=== PATIENT | female | born 2000 | race Caucasian/White ===

== ENCOUNTER 2021-03-18 00:30 | Emergency (ER) | payer MEDICAID ==
[2021-03-18] MEDS ORDERED: traMADol HCl 50 MG TAB ONE (01:20)
== END 2021-03-18 01:47 | disposition home or self-care (01) ==
LOC: NAV ERS 00:30
DX: S93.602A Unspecified sprain of left foot, initial encounter (principal); F17.290 Nicotine dependence, other tobacco product, uncomplicated; X58.XXXA Exposure to other specified factors, initial encounter

== ENCOUNTER 2021-05-05 16:21 | Emergency (ER) | payer OTHER ==
[2021-05-05 17:00] LABS: Clarity Clear (Clear); Specific Gravity, Urine 1.024 (1.002-1.036)
[2021-05-05 17:03] LABS: Bacteria/HPF Rare-Few HPF (None Seen); Pregnancy Test - Urine (BHCG) Negative (Negative); Squamous Epithelial 0-3 HPF (0-3); WBC/HPF 0-3 HPF (0-3)
[2021-05-05 17:04] LABS: Pregu Control Background? CLEAR/WHITE (CLR/WHITE); Pregu Control Bar Appear? YES (CONTROL BAR); Specific Gravity 1.024 (1.002-1.036)
[2021-05-05] MEDS ORDERED: Cipro 250 MG TAB ONE (17:10)
== END 2021-05-05 17:15 | disposition home or self-care (01) ==
LOC: NAV ERS 16:21
DX: N39.0 Urinary tract infection, site not specified (principal); F17.290 Nicotine dependence, other tobacco product, uncomplicated
CPT/HCPCS: 81003; 81015; 81025; 87086; 99284

== ENCOUNTER 2021-05-30 16:39 | Emergency (ER) | payer OTHER, SELFPAY | END 2021-05-30 17:30 | disposition home or self-care (01) | LOC: NAV ERS 16:39 | DX: R11.0 Nausea (principal); R53.81 Other malaise; R51.9 Headache, unspecified; F17.290 Nicotine dependence, other tobacco product, uncomplicated | CPT/HCPCS: 87804; 99283 ==

== ENCOUNTER 2021-06-04 08:00 | Emergency (ER) | payer SELFPAY ==
[2021-06-04 08:50] LABS: #Basophils 0.1 thou/uL (0.0-0.2); #Eosinphils 0.2 thou/uL (0.0-0.7); #Lymphocytes 2.3 thou/uL (1.20-3.40); #Monocytes 0.7 thou/uL (0.11-0.59); #Neutrophils 6.5 thou/uL (1.40-6.50); %Basophils 0.9 % (0.0-1.0); %Eosinophils 2.3 % (0.0-10.0); %Lymphocytes 23.4 % (21.0-51.0); %Monocytes 7.5 % (0.0-10.0); %Neutrophils 65.9 % (42.0-75.0); Hemoglobin 12.1 g/dL (12.0-16.0); Mean Corpuscular HGB CONC 31.2 g/dL (32.0-36.0); Mean Corpuscular Hemoglobin 26.2 pg (27.0-31.0); Mean Corpuscular Volume 83.9 fL (78.0-98.0); Mean Platelet Volume 8.6 fL (7.4-10.4); Platelet Count 458 thou/uL (130-400); RBC Distribution Width 13.6 % (11.5-14.5); Red Blood Cell (RBC) Count 4.64 mill/uL (4.20-5.40); White Blood Cell (WBC) Count 9.8 thou/uL (4.8-10.8)
[2021-06-04 09:03] LABS: ALT (SGPT) 20 U/L (8-55); AST (SGOT) 13 U/L (5-34); Albumin 3.6 g/dL (3.5-5.0); Anion Gap 11 mmol/L (10-20); BUN (Urea Nitrogen) 7 mg/dL (7.0-18.7); Bilirubin, Total 0.2 mg/dL (0.2-1.2); Calc. Creatinine Clearance 0 mL/min (70-130); Calcium 8.9 mg/dL (7.8-10.44); Carbon Dioxide 25 mmol/L (22-29); Chloride 107 mmol/L (98-107); Globulin 2.9 g/dL (2.4-3.5); Glucose 98 mg/dL (70-105); Potassium 4.5 mmol/L (3.5-5.1); Protein, Total 6.5 g/dL (6.0-8.3); Sodium 138 mmol/L (136-145)
[2021-06-04 09:47] LABS: Alkaline Phosphatase 104 U/L (40-110)
[2021-06-04 15:02] LABS: MONO NEGATIVE CONTROL ZONE White (Negative) (White); MONO POSITIVE CONTROL Pink Line (Positive) (PINK/RED); Mononucleosis NEGATIVE (NEGATIVE)
== END 2021-06-04 09:10 | disposition home or self-care (01) ==
LOC: NAV ERS 08:00
DX: J04.0 Acute laryngitis (principal); B34.9 Viral infection, unspecified; F17.290 Nicotine dependence, other tobacco product, uncomplicated
CPT/HCPCS: 36415; 80053; 85025; 86308; 87081; 87430; 99284

== ENCOUNTER 2021-06-05 14:52 | Emergency (ER) | payer SELFPAY | END 2021-06-05 15:35 | disposition home or self-care (01) | LOC: NAV ERS 14:52 | DX: J02.9 Acute pharyngitis, unspecified (principal); B34.9 Viral infection, unspecified; F17.290 Nicotine dependence, other tobacco product, uncomplicated | CPT/HCPCS: 99283 ==

== ENCOUNTER 2021-06-10 09:20 | Emergency (ER) | payer MEDICAID, SELFPAY ==
[2021-06-11 00:28] LABS: SARS-CoV-2 PCR by NAA Not Detected (NotDetected)
== END 2021-06-10 10:25 | disposition home or self-care (01) ==
LOC: NAV ERS 09:20
DX: B34.9 Viral infection, unspecified (principal); J06.9 Acute upper respiratory infection, unspecified; Z20.822 Contact with and (suspected) exposure to COVID-19; F17.290 Nicotine dependence, other tobacco product, uncomplicated
CPT/HCPCS: 71046; U0003; U0005

== ENCOUNTER 2021-06-20 18:10 | Emergency (ER) | payer MEDICAID, SELFPAY | END 2021-06-20 19:31 | disposition home or self-care (01) | LOC: NAV ERS 18:10 | DX: K62.5 Hemorrhage of anus and rectum (principal); F17.290 Nicotine dependence, other tobacco product, uncomplicated | CPT/HCPCS: 99281 ==

== ENCOUNTER 2022-01-15 19:20 | Emergency (ER) | payer OTHER, SELFPAY | END 2022-01-15 20:26 | disposition home or self-care (01) | LOC: NAV ERS 19:20 | DX: R42 Dizziness and giddiness (principal); R04.0 Epistaxis; F17.290 Nicotine dependence, other tobacco product, uncomplicated | CPT/HCPCS: 93005 ==

== ENCOUNTER 2022-04-08 12:38 | Emergency (ER) | payer SELFPAY | END 2022-04-08 13:51 | disposition home or self-care (01) | LOC: NAV ERS 12:38 | DX: J11.1 Influenza due to unidentified influenza virus with other respiratory manifestations (principal); F17.200 Nicotine dependence, unspecified, uncomplicated | CPT/HCPCS: 87804; 99283 ==

== ENCOUNTER 2022-08-14 18:26 | Emergency (ER) | payer SELFPAY | END 2022-08-14 19:19 | disposition home or self-care (01) | LOC: NAV ERS 18:26 | DX: M94.0 Chondrocostal junction syndrome [Tietze] (principal); F17.290 Nicotine dependence, other tobacco product, uncomplicated; X50.0XXA Overexertion from strenuous movement or load, initial encounter | CPT/HCPCS: 99283 ==

== ENCOUNTER 2022-10-03 14:05 | Outpatient (CLI) | payer BC | END 2022-10-03 14:06 | disposition home or self-care (01) | LOC: NAV RAD 14:05 | PROVIDERS: ATTEND Family Medicine | DX: M94.0 Chondrocostal junction syndrome [Tietze] (principal) ==

== ENCOUNTER 2022-11-08 10:10 | Emergency (ER) | payer BC ==
[2022-11-08] MEDS ORDERED: Ketorolac Tromethamine 60 MG/2 ML VIAL ONE (10:52)
== END 2022-11-08 11:05 | disposition home or self-care (01) ==
LOC: NAV ERS 10:10
DX: B34.9 Viral infection, unspecified (principal); G43.909 Migraine, unspecified, not intractable, without status migrainosus; F17.290 Nicotine dependence, other tobacco product, uncomplicated
CPT/HCPCS: 96372; 99283; J1885

== ENCOUNTER 2023-05-19 15:43 | Emergency (ER) | payer BC, SELFPAY ==
[2023-05-19 16:17] LABS: Bilirubin Negative (Negative); Blood, Urine Negative (Negative); Clarity Clear (Clear); Glucose, Urine (Dipstick) Negative (Negative); Ketone, Urine Negative (Negative); Leukocyte Negative (Negative); Nitrite Negative (Negative); Protein, Urine (Dipstick) Negative (Neg-Trace); Urobilinogen 0.2 mg/dL (Less than 2); pH, Urine 6.5 (5.0-9.0)
[2023-05-19 16:19] LABS: Pregnancy Test - Urine (BHCG) Negative (Negative); Pregu Control Background? CLEAR/WHITE (CLR/WHITE); Pregu Control Bar Appear? YES (CONTROL BAR)
[2023-05-19 16:25] LABS: Bacteria/HPF Rare-Few HPF (None Seen); CAUTI Indications for Culture Dysuria,urgency,freq; Squamous Epithelial 0-3 HPF (0-3); Urine Culture Reflex No No; WBC/HPF None Seen HPF (0-3)
== END 2023-05-19 17:12 | disposition home or self-care (01) ==
LOC: NAV ERS 15:43
DX: U07.1 COVID-19 (principal); F17.290 Nicotine dependence, other tobacco product, uncomplicated
CPT/HCPCS: 71045; 81001; 81025; 87635; 87804

== ENCOUNTER 2023-07-25 11:43 | Outpatient (CLI) | payer BC, MEDICAID | END 2023-07-25 11:44 | disposition home or self-care (01) | LOC: NAV RAD 11:43 | PROVIDERS: ATTEND Family Medicine | DX: M25.562 Pain in left knee (principal); M54.6 Pain in thoracic spine | CPT/HCPCS: 72072; 72100 ==

== ENCOUNTER 2023-08-29 18:44 | Emergency (ER) | payer BC, MEDICAID ==
[2023-08-29] MEDS ORDERED: Ketorolac Tromethamine 60 MG/2 ML VIAL ONE (19:11)
[2023-08-29 20:01] LABS: Influenza A by NAA DETECTED (NotDetected); Influenza B by NAA Not Detected (NotDetected); SARS-CoV-2 NAA Rapid Test Not Detected (NotDetected)
== END 2023-08-29 20:23 | disposition home or self-care (01) ==
LOC: NAV ERS 18:44
DX: J10.1 Influenza due to other identified influenza virus with other respiratory manifestations (principal); F17.290 Nicotine dependence, other tobacco product, uncomplicated
CPT/HCPCS: 96372; 99283; J1885

== ENCOUNTER 2024-03-05 16:12 | Emergency (ER) | payer BC, OTHER ==
[2024-03-05] MEDS ORDERED: Sodium Chloride 0.9% 1,000 ML ONE ×2 (16:49→18:23)
[2024-03-05 17:03] LABS: #Lymphocytes 0.9 thou/uL (1.20-3.40); #Monocytes 0.5 thou/uL (0.11-0.59); #Neutrophils 8.2 thou/uL (1.40-6.50); %Basophils 0.4 % (0.0-1.0); %Eosinophils 0.3 % (0.0-10.0); %Lymphocytes 8.9 % (21.0-51.0); %Monocytes 5.3 % (0.0-10.0); %Neutrophils 85.2 % (42.0-75.0); Hematocrit 40.2 % (36.0-47.0); Hemoglobin 13.1 g/dL (12.0-16.0); Mean Corpuscular HGB CONC 32.7 g/dL (32.0-36.0); Mean Corpuscular Hemoglobin 27.1 pg (27.0-31.0); Mean Corpuscular Volume 82.9 fl (78.0-98.0); Mean Platelet Volume 9.3 fL (7.4-10.4); Platelet Count 359 10x3/uL (130-400); RBC Distribution Width 13.1 % (11.5-14.5); Red Blood Cell (RBC) Count 4.84 mill/uL (4.20-5.40); White Blood Cell (WBC) Count 9.6 10x3/uL (4.8-10.8)
[2024-03-05 17:28] LABS: Anion Gap 14 mmol/L (10-20); BUN (Urea Nitrogen) 6 mg/dL (7.0-18.7); Calc. Creatinine Clearance 0 mL/min (70-130); Calcium 9.2 mg/dL (7.8-10.44); Carbon Dioxide 20 mmol/L (22-29); Chloride 104 mmol/L (98-107); Estimated GFR 126; Glucose 80 mg/dL (70-105); Potassium 3.9 mmol/L (3.5-5.1); Sodium 134 mmol/L (136-145)
[2024-03-05 17:43] LABS: Bilirubin Small (Negative); Blood, Urine Negative (Negative); Glucose, Urine (Dipstick) Negative (Negative); Ketone, Urine > or equal to 80 mg/dL (Negative); Leukocyte Negative (Negative); Nitrite Negative (Negative); Protein, Urine (Dipstick) 30 mg/dL (Neg-Trace)
[2024-03-05 17:53] LABS: Bacteria/HPF 2+ HPF (None Seen); CAUTI Indications for Culture Alt mental st,lethar; Clarity Hazy (Clear); Mucous/LPF 1+ LPF (<2+); WBC/HPF 0-3 HPF (0-3)
[2024-03-05 17:54] LABS: Specific Gravity, Urine 1.028 (1.002-1.036)
[2024-03-05 17:55] LABS: Urine Culture Reflex No No
[2024-03-05] MEDS ORDERED: Ondansetron ODT 4 MG TAB ONE (18:23)
== END 2024-03-05 19:26 | disposition home or self-care (01) ==
LOC: NAV ERS 16:12
DX: O21.9 Vomiting of pregnancy, unspecified (principal); O99.281 Endocrine, nutritional and metabolic diseases complicating pregnancy, first trimester; E86.0 Dehydration; O99.341 Other mental disorders complicating pregnancy, first trimester; F41.9 Anxiety disorder, unspecified; F32.A Depression, unspecified; Z3A.12 12 weeks gestation of pregnancy
CPT/HCPCS: 80048; 81001; 85025; 96360; 96361; J7030; Q0162

== ENCOUNTER 2025-05-11 19:52 | Emergency (ER) | payer BC, OTHER ==
[2025-05-11] MEDS ORDERED: Ketorolac Tromethamine 30 MG (1 mL) VIAL ONE (20:38)
[2025-05-11] MEDS ORDERED: Metoclopramide HCl 10 MG (2 mL) VIAL ONE (20:38)
[2025-05-11] MEDS ORDERED: diphenhydrAMINE 50 MG/ML VIAL ONE (20:38)
== END 2025-05-11 22:25 | disposition home or self-care (01) ==
LOC: NAV ERS 19:52
DX: G43.909 Migraine, unspecified, not intractable, without status migrainosus (principal)
CPT/HCPCS: 96374; 96375; J1200; J1885; J2765; J3010; J7030